=== PATIENT | female | born 1990 | race American Indian/Alaskan Native ===

== ENCOUNTER 2021-03-18 14:54 | Emergency (ER) | payer MEDICAID ==
[2021-03-18] MEDS ORDERED: levETIRAcetam 1000 MG/NS 0.75% 1,000 MG/100 ML BAG IV ONE (15:40)
[2021-03-18] MEDS ORDERED: SODIUM CHLORIDE 0.9% 1000 ML 1,000 ML IV ONE ×2 (15:40→16:54)
[2021-03-18] MEDS ORDERED: ACETAMINOPHEN 500 MG TAB PO ONE (15:41)
[2021-03-18 16:16] LABS: Basophils % (Auto) 0.3 % (0.0-1.8); Eosinophils % (Auto) 0.4 % (0.0-4.3); Lymphocytes # (Auto) 0.8 K/mm3 (1.2-5.4); Lymphocytes % (Auto) 10.9 % (13.4-35.0); Mean Corpuscular HGB Conc 29 % (30-34); Monocytes # (Auto) 0.5 K/mm3 (0.0-0.8); Monocytes % (Auto) 7.5 % (0.0-7.3); Platelet Count 209 K/mm3 (140-440); Red Blood Count 3.84 M/mm3 (3.65-5.03)
[2021-03-18 16:18] LABS: Hematocrit 22.8 % (30.3-42.9); Hemoglobin 6.6 gm/dl (10.1-14.3)
--- NOTE | 2021-03-18 16:18 | Emergency Department Report ---
HPI - General Chief Complaint: Seizure Time Seen by Provider: 03/18/21 15:17 - HPI HPI: 30-year-old female with history of seizure disorder on Keppra presents complaining of symptoms which she typically has right before she has a seizure. The patient states that she has not taken her prescribed Keppra for the past year because it makes her drowsy. She says she was at work today when she began to feel really shaky, lightheaded, and nauseated with a slight global headache which she describes as pressure-like. All of these symptoms are typical of what happens to her right before she has a seizure. She does admit to very poor sleep recently, specifically last night. She did drink alcohol 2 days ago but has not drank recently. Other than the symptoms, she denies any fever/chills, vision change, neck pain, chest pain, shortness of breath, abdominal pain, vomiting, focal weakness, sensory changes, dysuria, or any other complaints. ED Past Medical Hx - Past Medical History Previous Medical History?: Yes Hx Seizures: Yes Additional medical history: Heart murmur - Surgical History Additional Surgical History: - Social History Smoking Status: Never Smoker Substance Use Type: Alcohol - Medications Home Medications: Home Medications Medication Instructions Recorded Confirmed Last Taken Type Iron,Carb/Vit C/Vit B12/Folic 1 each PO BID #60 tablet 03/18/21 Unknown Rx [Iron 100 Plus Tablet] levETIRAcetam [Keppra TAB] 500 mg PO TID #180 tablet 03/18/21 Unknown Rx ED Review of Systems ROS: Stated complaint: FEELS LIKE SHE GOING SEIZE Other details as noted in HPI Constitutional: denies: chills, fever Eyes: denies: eye pain, vision change ENT: denies: throat pain, congestion Respiratory: denies: cough, shortness of breath Cardiovascular: denies: chest pain, palpitations Gastrointestinal: nausea. denies: abdominal pain, vomiting Genitourinary: denies: dysuria, frequency Musculoskeletal: denies: back pain, joint swelling Skin: denies: rash Neurological: headache, other ("shakiness"). denies: weakness, numbness, paresthesias, confusion, vertigo Physical Exam - Physical Exam Vital Signs: Vital Signs 03/18/21 15:17 Temperature 98.3 F Pulse Rate 70 Respiratory 18 Rate Blood Pressure 104/44 [Left] O2 Sat by Pulse 100 Oximetry Physical Exam: GENERAL: Well developed and well nourished. No acute distress HEENT: Normocephalic. No obvious signs of trauma. Slightly dry mucous membranes. EYES: Extraocular movements are intact. Pupils are equal round and reactive to light bilaterally NECK: Supple. Trachea is midline. LUNGS: Nonlabored breathing. Equal chest rise bilaterally. Clear to auscultation bilaterally. HEART/CARDIOVASCULAR: Regular rate and rhythm. No murmurs or rubs. VASCULAR: 2+ peripheral pulses. Cap refill < 2 seconds ABDOMEN: Abdomen is soft and nondistended. There is no significant tenderness, guarding or rebound. SKIN: Skin is warm and dry NEURO: Patient is awake, alert, and oriented. office rn II-XII grossly intact. No focal deficits. Normal motor and sensory exam throughout. Normal speech. MUSCULOSKELETAL: No obvious deformities. No significant tenderness. Normal ROM throughout. ED Course Vital Signs 03/18/21 15:17 Temperature 98.3 F Pulse Rate 70 Respiratory 18 Rate Blood Pressure 104/44 [Left] O2 Sat by Pulse 100 Oximetry ED Medical Decision Making - Lab Data Result diagrams: 03/19/21 00:53 03/18/21 15:45 Lab Results 03/18/21 03/18/21 03/18/21 Range/Units 15:45 15:45 15:45 WBC 7.2 (4.5-11.0) K/mm3 RBC 3.84 (3.65-5.03) M/mm3 Hgb 6.6 L (10.1-14.3) gm/dl Hct 22.8 L (30.3-42.9) % MCV 59 L (79-97) fl MCH 17 L (28-32) pg MCHC 29 L (30-34) % RDW 19.0 H (13.2-15.2) % Plt Count 209 (140-440) K/mm3 Lymph % (Auto) 10.9 L (13.4-35.0) % [place] % (Auto) 7.5 H (0.0-7.3) % Eos % (Auto) 0.4 (0.0-4.3) % Baso % (Auto) 0.3 (0.0-1.8) % Lymph # (Auto) 0.8 L (1.2-5.4) K/mm3 [place] # (Auto) 0.5 (0.0-0.8) K/mm3 Eos # (Auto) 0.0 (0.0-0.4) K/mm3 Baso # (Auto) 0.0 (0.0-0.1) K/mm3 Seg Neutrophils % 80.9 H (40.0-70.0) % Seg Neutrophils # 5.8 (1.8-7.7) K/mm3 PT (12.2-14.9) Sec. INR (0.87-1.13) APTT (24.2-36.6) Sec. Sodium 138 (137-145) mmol/L Potassium 3.6 (3.6-5.0) mmol/L Chloride 103.8 (98-107) mmol/L Carbon Dioxide 24 (22-30) mmol/L Anion Gap 14 mmol/L BUN 7 (7-17) mg/dL Creatinine 0.4 L (0.6-1.2) mg/dL Estimated GFR > 60 ml/min BUN/Creatinine Ratio 18 % Glucose 80 (65-100) mg/dL Calcium 8.9 (8.4-10.2) mg/dL Total Bilirubin 0.30 (0.1-1.2) mg/dL Direct Bilirubin < 0.2 (0-0.2) mg/dL Indirect Bilirubin 0.1 mg/dL AST 12 (5-40) units/L ALT < 5 L (7-56) units/L Alkaline Phosphatase 55 (35-129) units/L Total Protein 7.1 (6.3-8.2) g/dL Albumin 4.3 (3.9-5) g/dL Albumin/Globulin Ratio 1.5 % HCG, Qual Negative (Negative) Urine Color (Yellow) Urine Turbidity (Clear) Urine pH (5.0-7.0) Ur Specific [place] (1.003-1.030) Urine Protein (Negative) mg/dL Urine Glucose (UA) (Negative) mg/dL Urine Ketones (Negative) mg/dL Urine Blood (Negative) Urine Nitrite (Negative) Urine Bilirubin (Negative) Urine Urobilinogen (<2.0) mg/dL Ur Leukocyte Esterase (Negative) Urine WBC (Auto) (0.0-6.0) /HPF Urine RBC (Auto) (0.0-6.0) /HPF U Epithel Cells (Auto) (0-13.0) /HPF Urine Bacteria (Auto) (Negative) /HPF Urine Mucus /HPF Blood Type Antibody Screen Crossmatch 03/18/21 03/18/21 03/18/21 Range/Units 17:03 17:15 Unknown WBC (4.5-11.0) K/mm3 RBC (3.65-5.03) M/mm3 Hgb (10.1-14.3) gm/dl Hct (30.3-42.9) % MCV (79-97) fl MCH (28-32) pg MCHC (30-34) % RDW (13.2-15.2) % Plt Count (140-440) K/mm3 Lymph % (Auto) (13.4-35.0) % [place] % (Auto) (0.0-7.3) % Eos % (Auto) (0.0-4.3) % Baso % (Auto) (0.0-1.8) % Lymph # (Auto) (1.2-5.4) K/mm3 [place] # (Auto) (0.0-0.8) K/mm3 Eos # (Auto) (0.0-0.4) K/mm3 Baso # (Auto) (0.0-0.1) K/mm3 Seg Neutrophils % (40.0-70.0) % Seg Neutrophils # (1.8-7.7) K/mm3 PT 14.4 (12.2-14.9) Sec. INR 1.07 (0.87-1.13) APTT 33.0 (24.2-36.6) Sec. Sodium (137-145) mmol/L Potassium (3.6-5.0) mmol/L Chloride (98-107) mmol/L Carbon Dioxide (22-30) mmol/L Anion Gap mmol/L BUN (7-17) mg/dL Creatinine (0.6-1.2) mg/dL Estimated GFR ml/min BUN/Creatinine Ratio % Glucose (65-100) mg/dL Calcium (8.4-10.2) mg/dL Total Bilirubin (0.1-1.2) mg/dL Direct Bilirubin (0-0.2) mg/dL Indirect Bilirubin mg/dL AST (5-40) units/L ALT (7-56) units/L Alkaline Phosphatase (35-129) units/L Total Protein (6.3-8.2) g/dL Albumin (3.9-5) g/dL Albumin/Globulin Ratio % HCG, Qual (Negative) Urine Color Straw (Yellow) Urine Turbidity Clear (Clear) Urine pH 6.0 (5.0-7.0) Ur Specific [place] 1.006 (1.003-1.030) Urine Protein <15 mg/dl (Negative) mg/dL Urine Glucose (UA) Neg (Negative) mg/dL Urine Ketones Neg (Negative) mg/dL Urine Blood Neg (Negative) Urine Nitrite Neg (Negative) Urine Bilirubin Neg (Negative) Urine Urobilinogen < 2.0 (<2.0) mg/dL Ur Leukocyte Esterase Mod (Negative) Urine WBC (Auto) 2.0 (0.0-6.0) /HPF Urine RBC (Auto) 2.0 (0.0-6.0) /HPF U Epithel Cells (Auto) 1.0 (0-13.0) /HPF Urine Bacteria (Auto) 2+ (Negative) /HPF Urine Mucus Few /HPF Blood Type B POSITIVE Antibody Screen Negative Crossmatch See Detail 03/19/21 Range/Units 00:53 WBC (4.5-11.0) K/mm3 RBC (3.65-5.03) M/mm3 Hgb 7.4 L (10.1-14.3) gm/dl Hct 25.8 L (30.3-42.9) % MCV (79-97) fl MCH (28-32) pg MCHC (30-34) % RDW (13.2-15.2) % Plt Count (140-440) K/mm3 Lymph % (Auto) (13.4-35.0) % [place] % (Auto) (0.0-7.3) % Eos % (Auto) (0.0-4.3) % Baso % (Auto) (0.0-1.8) % Lymph # (Auto) (1.2-5.4) K/mm3 [place] # (Auto) (0.0-0.8) K/mm3 Eos # (Auto) (0.0-0.4) K/mm3 Baso # (Auto) (0.0-0.1) K/mm3 Seg Neutrophils % (40.0-70.0) % Seg Neutrophils # (1.8-7.7) K/mm3 PT (12.2-14.9) Sec. INR (0.87-1.13) APTT (24.2-36.6) Sec. Sodium (137-145) mmol/L Potassium (3.6-5.0) mmol/L Chloride (98-107) mmol/L Carbon Dioxide (22-30) mmol/L Anion Gap mmol/L BUN (7-17) mg/dL Creatinine (0.6-1.2) mg/dL Estimated GFR ml/min BUN/Creatinine Ratio % Glucose (65-100) mg/dL Calcium (8.4-10.2) mg/dL Total Bilirubin (0.1-1.2) mg/dL Direct Bilirubin (0-0.2) mg/dL Indirect Bilirubin mg/dL AST (5-40) units/L ALT (7-56) units/L Alkaline Phosphatase (35-129) units/L Total Protein (6.3-8.2) g/dL Albumin (3.9-5) g/dL Albumin/Globulin Ratio % HCG, Qual (Negative) Urine Color (Yellow) Urine Turbidity (Clear) Urine pH (5.0-7.0) Ur Specific [place] (1.003-1.030) Urine Protein (Negative) mg/dL Urine Glucose (UA) (Negative) mg/dL Urine Ketones (Negative) mg/dL Urine Blood (Negative) Urine Nitrite (Negative) Urine Bilirubin (Negative) Urine Urobilinogen (<2.0) mg/dL Ur Leukocyte Esterase (Negative) Urine WBC (Auto) (0.0-6.0) /HPF Urine RBC (Auto) (0.0-6.0) /HPF U Epithel Cells (Auto) (0-13.0) /HPF Urine Bacteria (Auto) (Negative) /HPF Urine Mucus /HPF Blood Type Antibody Screen Crossmatch - Radiology Data CT head/brain wo con INDICATION / CLINICAL INFORMATION: 30 years Female; increasing somnolence, neurologic symptoms. TECHNIQUE: Routine CT head without contrast. All CT scans at this location are performed using CT dose reduction for ALARA by means of automated exposure control. COMPARISON: None. FINDINGS: BRAIN / INTRACRANIAL CONTENTS: The brain appears to demonstrate appropriate attenuation. The ventricular system is within normal limits in size and configuration. There is no clear CT evidence of acute intracranial hemorrhage or significant mass effect. ORBITS: No significant abnormality of visualized orbits. SINUSES / MASTOIDS: No significant abnormality in the visualized paranasal sinuses or mastoid air cells. CRANIOCERVICAL JUNCTION: No significant abnormality. ADDITIONAL FINDINGS: None. IMPRESSION: 1. There is no CT evidence of acute intracranial process. Signer Name: Seymour Lam MD Signed: 03/18/2021 5:42 PM Workstation Name: [id number] ULTRASOUND PELVIS INDICATION / CLINICAL INFORMATION: Assess for evidence of b leeding. Heavy vaginal bleeding times one year. Low hemoglobin. TECHNIQUE: Transabdominal. Duplex Color Doppler used: Yes. COMPARISON: None available FINDINGS: UTERUS: - Appearance: Mildly heterogeneous. - Size (cm): 8.9 x 3.8 x 4.3 - Endometrial Complex (if present): No significant abnormality.. Thickness in cm (if measured) = 0.8 - Mass or cyst: 2.5 cm fibroid in the fundus. - Additional findings: None. RIGHT ADNEXA: No significant ovarian cyst or mass. Normal color Doppler blood flow. LEFT ADNEXA: No significant ovarian cyst or mass. Normal color Doppler blood flow. URINARY BLADDER: No significant abnormality. FREE FLUID: None. ADDITIONAL FINDINGS: None. IMPRESSION: 1. No acute sonographic abnormality of the pelvis. Signer Name: Crescencio Huerta MD Signed: 03/18/2021 4:55 PM Workstation Name: [id number] - Medical Decision Making 30-year-old female with history of seizure disorder noncompliant with prescribed Keppra for the past year presents complaining of symptoms which she typically has right before she has a seizure. The patient was at work when she began to experience nausea, lightheadedness, and shakiness with a mild headache which is what she typically has before seizure. She is prescribed Keppra 500 mg 3 times daily but has not taken it in 1 year. She does admit to very poor sleep recently and some alcohol ingestion 2 days ago. On initial assessment, she is afebrile and with normal vital signs. Physical examination reveals slightly dry mucous membranes. She has a nonfocal neurologic exam. The remainder of her physical exam is within normal limits. We will send a full set of labs including a test. We will give 1 L of IV fluids and 1000 mg loading dose of IV Keppra. We will continue to monitor closely. At 4:45 PM, labs have returned and reveal significant anemia with hemoglobin of 6.6. There is no significant leukocytosis. There are no significant electrolyte abnormalities and creatinine is within normal limits. Her test is normal. When I went to reassess the patient, she was resting comf ortably in the bed and appears slightly tired. I asked whether she has a history of anemia and she said yes but does not know her most recent hemoglobin level. She states that she has heavy periods and has had to be transfused blood in the past. She says that her last period ended on March 15 and she has had no further bleeding since then. She denies any dark tarry stools. I explained to her the importance of doing a rectal exam with Hemoccult test but the patient refused, understanding that refusing this exam confers the risks of possible missed or delayed diagnosis. She again denies any abdominal pain and is nontender. She is not tachycardic but her most recent blood pressure is in the low 90s over the 30s and she is symptomatic, therefore we will transfuse 1 unit of PRBCs, send coags and type and screen and give an additional 1 L of IV fluids. Will obtain pelvic ultrasound to assess for any evidence of bleeding. We will continue to monitor the patient closely On repeat assessment again at 5:30 PM, the patient states that she feels slightly more tired but her initial symptoms of shakiness/lightheadedness have improved significantly. I again reevaluated the patient at 6:10 PM she states that she no longer feels lightheaded or shaky at all. However, she is noted to be extremely somnolent. She remains oriented x4. She has no focal neurologic deficits. Although it is possible her somnolence is related to being given IV Keppra, we will obtain CT of the head given that her mentation has changed. Pelvic ultrasound has resulted in reveals no acute abnormalities. I suspect that the patient's low hemoglobin is chronic but that her dehydration may have precipitated symptomatic anemia in this patient. CT of the head reveals no acute abnormalities. We will continue to monitor her closely until all treatment has been administered. I spoke with the patient regarding plans for disposition. Given that she has no active bleeding and that her symptoms have improved after IV fluids, we will plan to finish the blood transfusion and repeat a hemoglobin/hematocrit level to confirm appropriate response. After the transfusion she will be discharged home with a refill for her prescribed Keppra as well as the plan for her to follow-up in 3 days for repeat labs. Given that she has low and CV and a history of iron deficiency anemia I will also prescribe iron supplements. I personally spoke to the patient and underscore the importance of following up for repeat labs given that she required a blood transfusion. The patient promises me that she will follow-up with a doctor in 3 days for this reason. She also requests that I give her referral to a new neurologist which I will do. She was also given strict return precautions and says she will return to the emergency department should her symptoms worsen or should she develop any new concerning symptoms. Case has been signed out to Dr.El Ortiz who will follow up the repeat H&H and make sure the patient remains symptomatically improved with stable vital signs. Critical Care Time: Yes (60) Critical care time in (mins) excluding proc time.: 60 Critical care attestation.: If time is entered above; I have spent that time in minutes in the direct care of this critically ill patient, excluding procedure time. Critical care time was spent in the assessment/evaluation, work-up, and management of critical anemia requiring transfusion of packed red blood cells as well as frequent reassessment ED Disposition Clinical Impression: Symptomatic anemia, Dehydration, Seizure disorder Disposition: DC- TO HOME OR SELFCARE Is pt being admited?: No Condition: Stable Instructions: Preventing Iron Deficiency Anemia, Adult, Dehydration, Adult, [id number], Epilepsy, Blood Transfusion, Adult, Care After Additional Instructions: Your hemoglobin level was found to be 6.6. You were transfused 1 unit of blood. You need to follow-up in 2 to 3 days with a primary care doctor or you can have repeat labs to ensure that the numbers not dropping. You have been given the name of a neurologist, Dr. Mathias. Please follow-up with him in the next few days to discuss the treatment for your seizure disorder including your desire to change from Keppra. Until then, please take Keppra as prescribed. Please return to the emergency department should you develop worsening symptoms or any other new concerns. Prescriptions: Iron,Carb/Vit C/Vit B12/Folic [Iron 100 Plus Tablet] 1 each PO BID #60 tablet levETIRAcetam [Keppra TAB] 500 mg PO TID #180 tablet Referrals: [facility] [Provider Group] - 2-3 Days LOLLY MATHIAS MD [Referring] - 3-5 Days
[2021-03-18 16:19] LABS: Mean Corpuscular Volume 59 fl (79-97)
[2021-03-18 16:21] LABS: Albumin 4.3 g/dL (3.9-5); Blood Urea Nitrogen 7 mg/dL (7-17); Calcium 8.9 mg/dL (8.4-10.2); Hemolysis Index 6
[2021-03-18 16:30] LABS: Alanine Aminotransferase < 5 units/L (7-56); BUN/Creatinine Ratio 18; Bilirubin,Direct < 0.2 mg/dL (0-0.2)
[2021-03-18] MEDS ORDERED: SODIUM CHLORIDE 0.9% 500 ML 500 ML IV ONE (16:57)
[2021-03-18 17:41] LABS: INR 1.07 (0.87-1.13)
[2021-03-18 18:59] LABS: Bacteria,Urine 2+ /HPF (Negative); Bilirubin,Urine NEG (Negative); Blood,Urine NEG (Negative); Color,Urine Straw (Yellow); Mucus,Urine FEW /HPF; Protein,Urine <15 mg/dL mg/dL (Negative); Urobilinogen,Urine < 2.0 mg/dL (<2.0)
[2021-03-19 01:24] LABS: Hematocrit 25.8 % (30.3-42.9); Hemoglobin 7.4 gm/dl (10.1-14.3)
[2021-03-19 01:56] VITALS: BP 141/74
== END 2021-03-19 01:55 | disposition home or self-care (01) ==
LOC: ED 14:54
DX: D64.9 Anemia, unspecified (principal); E86.0 Dehydration; G40.909 Epilepsy, unspecified, not intractable, without status epilepticus; R79.1 Abnormal coagulation profile; Z98.890 Other specified postprocedural states; Z72.89 Other problems related to lifestyle; Z79.899 Other long term (current) drug therapy; Z88.5 Allergy status to narcotic agent
CPT/HCPCS: 36415; 36430; 70450; 76856; 80048; 80076; 81001; 84703; 85014; 85018; 85025; 85610; 85730; 86850; 86900; 86901; 86920; 96361; 96365; 96366; 99291; J1953; J7030; P9016

== ENCOUNTER 2022-03-13 10:56 | Emergency (ER) | payer MEDICAID ==
[2022-03-13 15:06] VITALS: BP 105/63
--- NOTE | 2022-03-13 15:30 | Emergency Department Report ---
- General Chief Complaint: Upper Respiratory Infection Stated Complaint: COLD Time Seen by Provider: 03/13/22 15:13 Source: patient Mode of arrival: Ambulatory Limitations: No Limitations - History of Present Illness Initial Comments: 31-year-old female presents to the ED complaining of cough symptoms x2 weeks. Patient states that she has been having sinus congestion with loss of voice, sore throat, headache and cough. She states taking [id number] medication without any relief. Patient states taking Claritin [id number]-zyn-[id number] without any relief. She states taking Tylenol for headache with mild relief. Patient denies any fever chills nausea vomiting. Patient is alert and oriented x3. No acute distress noted. No ill appearance noted MD Complaint: cough, sore throat, nasal congestion, sinus pain Onset/Timin -: week(s) Severity: moderate Severity scale (0 -10): 8 Quality: aching Consistency: intermittent Worsens With: nothing Associated Symptoms: denies other symptoms - Related Data Previous Rx's Medication Instructions Recorded Last Taken Type Iron,Carb/Vit C/Vit B12/Folic 1 each PO BID #60 tablet 03/18/21 Unknown Rx [Iron 100 Plus Tablet] levETIRAcetam [Keppra TAB] 500 mg PO TID #180 tablet 03/18/21 Unknown Rx Amoxicillin/K Clav Tab [Augmentin 1 tab PO Q12HR 10 Days #20 tab 03/13/22 Unknown Rx 875 mg] Brompheniramine/Pseudoephed/Dm 5 ml PO BID 5 Days #118 ml 03/13/22 Unknown Rx [Bromfed Dm Cough Syrup] Ibuprofen [Motrin] 800 mg PO Q8HR PRN 15 Days #30 03/13/22 Unknown Rx tablet predniSONE [Deltasone] 50 mg PO QDAY 5 Days #5 tab 03/13/22 Unknown Rx Allergies Allergy/AdvReac Type Severity Reaction Status Date / Time morphine Allergy Unknown Verified 03/13/22 11:05 ED Review of Systems ROS: Stated complaint: COLD Other details as noted in HPI Constitutional: denies: chills, fever Eyes: denies: eye pain, eye discharge, vision change ENT: denies: ear pain, throat pain Respiratory: cough. denies: shortness of breath, wheezing Cardiovascular: denies: chest pain, palpitations Endocrine: no symptoms reported Gastrointestinal: denies: abdominal pain, nausea, diarrhea Genitourinary: denies: urgency, dysuria, discharge Musculoskeletal: denies: back pain, joint swelling, arthralgia Skin: denies: rash, lesions Neurological: denies: headache, weakness, paresthesias Psychiatric: denies: anxiety, depression Hematological/Lymphatic: denies: easy bleeding, easy bruising ED Past Medical Hx - Past Medical History Previous Medical History?: Yes Hx Seizures: Yes Additional medical history: Heart murmur - Surgical History Additional Surgical History: - Social History Smoking Status: Current Every Day Smoker - Medications Home Medications: Home Medications Medication Instructions Recorded Confirmed Last Taken Type Iron,Carb/Vit C/Vit B12/Folic 1 each PO BID #60 tablet 03/18/21 Unknown Rx [Iron 100 Plus Tablet] levETIRAcetam [Keppra TAB] 500 mg PO TID #180 tablet 03/18/21 Unknown Rx Amoxicillin/K Clav Tab [Augmentin 1 tab PO Q12HR 10 Days #20 tab 03/13/22 Unkno wn Rx 875 mg] Brompheniramine/Pseudoephed/Dm 5 ml PO BID 5 Days #118 ml 03/13/22 Unknown Rx [Bromfed Dm Cough Syrup] Ibuprofen [Motrin] 800 mg PO Q8HR PRN 15 Days #30 03/13/22 Unknown Rx tablet predniSONE [Deltasone] 50 mg PO QDAY 5 Days #5 tab 03/13/22 Unknown Rx ED Physical Exam - General Limitations: No Limitations General appearance: alert, in no apparent distress - Head Head exam: Present: atraumatic, normocephalic - Eye Eye exam: Present: normal appearance - ENT ENT exam: Present: mucous membranes moist - Expanded ENT Exam Expanded TM/Canal exam: Mastoid Tenderness: Right TM, Left TM Mouth exam: Absent: drooling, trismus, tongue normal, tongue elevation Throat exam: Positive: tonsillar erythema - Neck Neck exam: Present: normal inspection - Respiratory Respiratory exam: Present: normal lung sounds bilaterally. Absent: respiratory distress - Cardiovascular Cardiovascular Exam: Present: regular rate, normal rhythm. Absent: systolic murmur, diastolic murmur, rubs, gallop - GI/Abdominal GI/Abdominal exam: Present: soft, normal bowel sounds - Extremities Exam Extremities exam: Present: normal inspection - Back Exam Back exam: Present: normal inspection - Neurological Exam Neurological exam: Present: alert, oriented X3 - Psychiatric Psychiatric exam: Present: normal affect, normal mood - Skin Skin exam: Present: warm, dry, intact, normal color. Absent: rash ED Course Vital Signs 03/13/22 03/13/22 11:04 15:05 Temperature 98.6 F 98.0 F Pulse Rate 77 75 Respiratory 18 16 Rate Blood Pressure 113/45 Blood Pressure 105/63 [Left] O2 Sat by Pulse 100 100 Oximetry ED Medical Decision Making - Medical Decision Making 31-year-old female presents to the ED complaining of cough symptoms x2 weeks. Patient states that she has been having sinus congestion with loss of voice, sore throat, headache and cough. She states taking qdtl-igu-[id number] medication without any relief. Patient states taking Claritin bvok-bqi-hzopofo without any relief. She states taking Tylenol for headache with mild relief. Patient denies any fever chills nausea vomiting. Patient is alert and oriented x3. No acute distress noted. No ill appearance noted, physical examination patient has tenderness noted to the frontal cavity. Postnasal drip noted Rechecked the patient is resting quietly , comfortable and feeling better. I discussed the results of diagnostic study, my clinical impression and the plan for further treatment with the patient. Patient agrees with plan and discharge at this present time. All question addressed. I have given the patient instruction regarding a diagnosis ,expectation ,follow- up and return precaution. I explained to the patient that emergent condition may arise and to return to the ED for new worsen and any new persisting condition. I have explained the importance of following up with the primary care physician or referral physician listed below has instructed. The patient verbalized understanding of discharge instruction. Critical care attestation.: If time is entered above; I have spent that time in minutes in the direct care of this critically ill patient, excluding procedure time. ED Disposition Clinical Impression: Acute sinusitis Qualifiers: Sinusitis location: frontal Recurrence: non-recurrent Qualified Code(s): J01.10 - Acute frontal sinusitis, unspecified Disposition: 01 HOME / SELF CARE / HOMELESS Is pt being admited?: No Does the pt Need Aspirin: No Condition: Stable Instructions: Sinusitis, Adult, [id number] Additional Instructions: Take medication as prescribed Return to the ED for any worsening Prescriptions: Amoxicillin/K Clav Tab [Augmentin 875 mg] 1 tab PO Q12HR 10 Days #20 tab Brompheniramine/Pseudoephed/Dm [Bromfed Dm Cough Syrup] 5 ml PO BID 5 Days #118 ml predniSONE [Deltasone] 50 mg PO QDAY 5 Days #5 tab Ibuprofen [Motrin] 800 mg PO Q8HR PRN 15 Days #30 tablet PRN Reason: Pain, Mild (1-3) Referrals: [facility] [Provider Group] - 3-5 Days Forms: Work/School Release Form(ED) Time of Disposition: 15:41
== END 2022-03-13 16:47 ==
LOC: ED 10:56
DX: J01.90 Acute sinusitis, unspecified (principal); R56.9 Unspecified convulsions; R01.1 Cardiac murmur, unspecified; Z98.890 Other specified postprocedural states; F17.290 Nicotine dependence, other tobacco product, uncomplicated; Z88.5 Allergy status to narcotic agent
CPT/HCPCS: 99282

== ENCOUNTER 2022-04-18 16:06 | Emergency (ER) | payer MEDICAID ==
[2022-04-18 16:53] LABS: Mean Corpuscular HGB Conc 29 % (30-34); Platelet Count 269 K/mm3 (140-440); Red Blood Count 4.36 M/mm3 (3.65-5.03); Red Cell Distribution Width 18.6 % (13.2-15.2)
[2022-04-18 17:09] LABS: Hemoglobin 7.5 gm/dl (10.1-14.3); Mean Corpuscular Volume 60 fl (79-97)
[2022-04-18 17:18] LABS: Alanine Aminotransferase 5 units/L (7-56); Albumin 4.4 g/dL (3.9-5); Blood Urea Nitrogen 5 mg/dL (7-17); Calcium 9.3 mg/dL (8.4-10.2); Hemolysis Index 3
[2022-04-18 17:31] LABS: BUN/Creatinine Ratio 8
[2022-04-18] MEDS ORDERED: levETIRAcetam 500 MG in DEXTROSE 5% IN WATER 100 ML IV ONE (18:00)
[2022-04-18] MEDS ORDERED: SODIUM CHLORIDE 0.9% 1000 ML 1,000 ML IV ONE (18:02)
--- NOTE | 2022-04-18 18:02 | Emergency Department Report ---
ED General Adult HPI - General Chief complaint: Weakness Stated complaint: WEAKNESS Time Seen by Provider: 04/18/22 16:35 Source: patient, EMS Mode of arrival: Stretcher Limitations: No Limitations - History of Present Illness Initial comments: 31-year-old female with past medical history of a seizure reports to the ER today after having a seizure at work. Patient reports she was seeing spots prior to having her seizure. Patient denies any head injury or any muscle skeletal pain. Patient does report she just feels weak after having her seizure. Patient reports that she has been out of her Keppra for 2 days now. Patient reports taking Keppra to 250 mg twice daily. Patient reports she has not seen her neurologist in a few months currently and does not have a primary care provider. Her last seizure was 2 weeks ago. Patient reports no other acute symptoms at this time. - Related Data Previous Rx's Medication Instructions Recorded Last Taken Type Iron,Carb/Vit C/Vit B12/Folic 1 each PO BID #60 tablet 03/18/21 Unknown Rx [Iron 100 Plus Tablet] levETIRAcetam [Keppra TAB] 500 mg PO TID #180 tablet 03/18/21 Unknown Rx Amoxicillin/K Clav Tab [Augmentin 1 tab PO Q12HR 10 Days #20 tab 03/13/22 Unknown Rx 875 mg] Brompheniramine/Pseudoephed/Dm 5 ml PO BID 5 Days #118 ml 03/13/22 Unknown Rx [Bromfed Dm Cough Syrup] Ibuprofen [Motrin] 800 mg PO Q8HR PRN 15 Days #30 03/13/22 Unknown Rx tablet predniSONE [Deltasone] 50 mg PO QDAY 5 Days #5 tab 03/13/22 Unknown Rx levETIRAcetam [Keppra TAB] 250 mg PO BID 30 Days #60 tab 04/18/22 Unknown Rx Allergies Allergy/AdvReac Type Severity Reaction Status Date / Time morphine Allergy Unknown Verified 04/18/22 16:12 ED Review of Systems ROS: Stated complaint: WEAKNESS Other details as noted in HPI Comment: All other systems reviewed and negative Constitutional: weakness Neurological: weakness, other (Seizure) ED Past Medical Hx - Past Medical History Previous Medical History?: Yes Hx Seizures: Yes Additional medical history: Heart murmur - Surgical History Additional Surgical History: - Social History Smoking Status: Current Every Day Smoker - Medications Home Medications: Home Medications Medication Instructions Recorded Confirmed Last Taken Type Iron,Carb/Vit C/Vit B12/Folic 1 each PO BID #60 tablet 03/18/21 Unknown Rx [Iron 100 Plus Tablet] levETIRAcetam [Keppra TAB] 500 mg PO TID #180 tablet 03/18/21 Unknown Rx Amoxicillin/K Clav Tab [Augmentin 1 tab PO Q12HR 10 Days #20 tab 03/13/22 Unknown Rx 875 mg] Brompheniramine/Pseudoephed/Dm 5 ml PO BID 5 Days #118 ml 03/13/22 Unknown Rx [Bromfed Dm Cough Syrup] Ibuprofen [Motrin] 800 mg PO Q8HR PRN 15 Days #30 03/13/22 Unknown Rx tablet predniSONE [Deltasone] 50 mg PO QDAY 5 Days #5 tab 03/13/22 Unknown Rx levETIRAcetam [Keppra TAB] 250 mg PO BID 30 Days #60 tab 04/18/22 Unknown Rx ED Physical Exam - General Limitations: No Limitations General appearance: alert, in no apparent distress - Head Head exam: Present: atraumatic, normocephalic - Eye Eye exam: Present: normal appearance - ENT ENT exam: Present: mucous membranes moist - Neck Neck exam: Present: normal inspection - Respiratory Respiratory exam: Present: normal lung sounds bilaterally. Absent: respiratory distress - Cardiovascular Cardiovascular Exam: Present: regular rate, normal rhythm. Absent: systolic murmur, diastolic murmur, rubs, gallop - GI/Abdominal GI/Abdominal exam: Present: soft, normal bowel sounds - Extremities Exam Extremities exam: Present: normal inspection - Back Exam Back exam: Present: normal inspection - Neurological Exam Neurological exam: Present: alert, altered, oriented X3, normal gait, motor sensory deficit - Psychiatric Psychiatric exam: Present: normal affect, normal mood - Skin Skin exam: Present: warm, dry, intact, normal color. Absent: rash ED Course Vital Signs 04/18/22 04/18/22 16:08 19:18 Temperature 97.7 F Pulse Rate 120 H 62 Respiratory 12 Rate Blood Pressure 130/81 105/46 [Left] O2 Sat by Pulse 99 100 Oximetry - Reevaluation(s) Reevaluation #1: 04/18/22 18:54 On reassessment patient reports feeling better. Patient is up talking to friends and family members on her phone. Patient is smiling. Patient reports no other acute symptoms. Patient denies weakness at this moment. Patient informed that she will be discharged home with Her Keppra prescription. Patient agrees with plan of care and verbalized understanding. ED Medical Decision Making - Lab Data Result diagrams: 04/18/22 16:44 04/18/22 16:44 - Medical Decision Making 22-year-old female past medical history of seizures had a seizure today while at work. Patient reports she has been on her seizure medication for 2 days and has yet to see a neurologist in a Few months. Patient just reports feeling weak after her seizure today. Patient reports no other acute symptoms at this time. PEno head injury noted. No injury to the tongue noted. Patient reports no muscle skeletal pain at this moment. Patient is alert and oriented x4. No other acute clinical findings noted on physical exam. Patient is neurologically intact. Patient to be given IV Keppra 500 mg for initial loading dose. Patient will be sent home with Keppra 250 mg twice daily for 30 days until patient is able to follow her neurologist as well as her established primary care provider. Patient states she is a resident of [facility] and will establish a primary care with either [facility] or [facility] services or somewhere close to her home. Patient agrees with plan of care and verbalized understanding. Patient is stable for discharge with no further work-up needed. Vital Signs 04/18/22 16:08 Temperature 97.7 F Pulse Rate 120 H Blood Pressure 130/81 [Left] O2 Sat by Pulse 99 Oximetry Vital Signs 04/18/22 04/18/22 16:08 19:18 Temperature 97.7 F Pulse Rate 120 H 62 Respiratory 12 Rate Blood Pressure 130/81 105/46 [Left] O2 Sat by Pulse 99 100 Oximetry Lab Results 04/18/22 04/18/22 Range/Units 16:44 16:44 WBC 5.2 (4.5-11.0) K/mm3 RBC 4.36 (3.65-5.03) M/mm3 Hgb 7.5 L (10.1-14.3) gm/dl Hct 26.0 L (30.3-42.9) % MCV 60 L (79-97) fl MCH 17 L (28-32) pg MCHC 29 L (30-34) % RDW 18.6 H (13.2-15.2) % Plt Count 269 (140-440) K/mm3 Sodium 141 (137-145) mmol/L Potassium 3.3 L (3.6-5.0) mmol/L Chloride 106.4 (98-107) mmol/L Carbon Dioxide 25 (22-30) mmol/L Anion Gap 13 mmol/L BUN 5 L (7-17) mg/dL Creatinine 0.6 (0.6-1.2) mg/dL Estimated GFR > 60 ml/min BUN/Creatinine Ratio 8 % Glucose 86 (65-100) mg/dL Calcium 9.3 (8.4-10.2) mg/dL Total Bilirubin 0.30 (0.1-1.2) mg/dL AST 15 (5-40) units/L ALT 5 L (7-56) units/L Alkaline Phosphatase 74 (35-129) units/L Total Protein 7.7 (6.3-8.2) g/dL Albumin 4.4 (3.9-5) g/dL Albumin/Globulin Ratio 1.3 % Critical care attestation.: If time is entered above; I have spent that time in minutes in the direct care of this critically ill patient, excluding procedure time. ED Disposition Clinical Impression: Seizure Disposition: 01 HOME / SELF CARE / HOMELESS Is pt being admited?: No Condition: Stable Instructions: Epilepsy, [id number], Seizure, Adult, [id number] Prescriptions: levETIRAcetam [Keppra TAB] 250 mg PO BID 30 Days #60 tab Referrals: PRIMARY CARE, [Primary Care Provider] - 3-5 Days Forms: Work/School Release Form(ED) Time of Disposition: 18:58
[2022-04-18 19:19] VITALS: BP 105/46
== END 2022-04-18 19:19 | disposition home or self-care (01) ==
LOC: ED 16:06
DX: R56.9 Unspecified convulsions (principal); F17.200 Nicotine dependence, unspecified, uncomplicated; Z88.5 Allergy status to narcotic agent
CPT/HCPCS: 36415; 80053; 85027; 96374; 99284; J1953; J7030; J7060